=== PATIENT | female | born 1980 | race Caucasian/White ===

== ENCOUNTER 2017-10-02 10:21 | Emergency (ER) | payer SELFPAY ==
[2017-10-02 10:53] LABS: Urine Appearance Cloudy; Urine Blood Negative (Negative); Urine Color Yellow; Urine Ketones 1+ (Negative); Urine Protein Negative (Negative); Urine Specific Gravity 1.027 (1.010-1.030); Urine Urobilinogen Negative (Negative)
[2017-10-02] MEDS ORDERED: Al Hydrox/Mg Hydrox/Simet LIQ* 30 ML UDC PO ONE (12:13)
[2017-10-02] MEDS ORDERED: Lidocaine 2% VISCOUS* 15 ML UDC PO ONE (12:13)
[2017-10-02] MEDS ORDERED: Omeprazole CAP* 20 MG PO ONE (12:14)
[2017-10-02 12:41] LABS: ABS Basophils 0 10^3/ul (0-0.2); ABS Eosinophils 0.1 10^3/ul (0-0.6); ABS Monocytes 0.5 10^3/ul (0-0.8); ABS Neutrophils 7.5 10^3/ul (1.5-7.7); ABS Nucleated RBC 0 10^3/ul; Eosinophil % 1.1 % (0-6); Hematocrit 39 % (35-47); Hemoglobin 13.7 g/dl (12.0-16.0); Lymphocyte % 10.9 % (25-47); Mean Corpuscular HGB Conc 35 g/dl (31-36); Mean Corpuscular Hemoglobin 32 pg (27-31); Mean Corpuscular Volume 92 fL (80-97); Mean Platelet Volume 9 um3 (7.4-10.4); Nucleated Red Blood Cells % 0; Platelet Count 170 10^3/ul (150-450); Red Blood Count 4.27 10^6/ul (4.0-5.4); Red Cell Distribution Width 13 % (10.5-15); White Blood Count 9.2 10^3/ul (3.5-10.8)
[2017-10-02 12:57] LABS: EGFR Non-African American 103.3 (>60)
--- NOTE | 2017-10-02 13:41 | RAD ---
HISTORY: Abdominal pain, epigastric pain COMPARISONS: None VIEWS: Frontal supine and upright views of the abdomen. FINDINGS: BOWEL: There is a nonspecific bowel gas pattern, with nondilated small bowel gas noted. There is large amount of stool within the colon. CALCULI: There are no abnormal calculi. BONES AND SOFT TISSUES: There are no osseous abnormalities. OTHER FINDINGS: The lung bases are clear. There is no subphrenic gas. An IUD is noted. IMPRESSION: NONSPECIFIC BOWEL GAS PATTERN. LARGE AMOUNT OF STOOL WITHIN THE COLON.
[2017-10-02 14:47] VITALS: BP 115/71
--- NOTE | 2017-10-03 16:47 | ED ---
Itzel Art Thomas, scribed for Jaime Jaquez MD on 10/02/17 at 1226 . Abdominal Pain/Female - HPI Summary HPI Summary: The patient is a 37 year old female presenting with severe upper abdominal pain that began this morning at 03:00. The pain is described as burning. The pain waxes and wanes from 5/10 to 8/10. The pain was worsened by PO intake yesterday of a sip of wine and a small amount of food. She complains of nausea. The patient denies vomiting, diarrhea, a sour taste in her mouth, and constipation. The patient reports similar (albeit less severe) episodes of pain over the last 10 years. She denies a history of GERD. Past surgical history includes cholecystectomy and . She had an IUD inserted yesterday. LMP 09/16/17. - History of Current Complaint Chief Complaint: EDAbdPain Stated Complaint: ABD PAIN Time Seen by Provider: 10/02/17 12:07 Hx Obtained From: Patient Onset/Duration: Lasting Hours - onset this am at 03:00, Still Present Timing: Constant Severity Initially: Severe Severity Currently: Severe Pain Intensity: 8 Pain Scale Used: 0-10 Numeric Location: Other - upper Character: Burning Aggravating Factor(s): Food Alleviating Factor(s): Nothing Associated Signs and Symptoms: Positive: Nausea. Negative: Fever, Constipation , Vomiting, Diarrhea, Other: - sour taste in mouth Simlar Episode/Dx as:: prior episodes over last year Allergies/Adverse Reactions: Allergies Allergy/AdvReac Type Severity Reaction Status Date / Time No Known Allergies Allergy Verified 10/02/17 10:25 PMH/Surg Hx/FS Hx/Imm Hx Cardiovascular History: Denies: Hx Myocardial Infarction GI History: Denies: Hx Gastroesophageal Reflux Disease - Surgical History Surgery Procedure, Year, and Place: , [place] Infectious Disease History: No Infectious Disease History: Denies: Hx Clostridium Difficile, Hx Hepatitis, Hx Human Immunodeficiency Virus (HIV), Hx of Known/Suspected MRSA, Hx Shingles, Hx Tuberculosis, Hx Known/ Suspected VRE, Hx Known/Suspected VRSA, History Other Infectious Disease, Traveled Outside the [place] in Last 30 Days - Family History Known Family History: Positive: Hypertension - Social History Alcohol Use: None Hx Substance Use: No Substance Use Type: Reports: None Hx Tobacco Use: No Smoking Status (MU): Never Smoked Tobacco Review of Systems Negative: Fever Positive: Abdominal Pain, Nausea. Negative: Vomiting, Diarrhea, Other - sour taste in mouth, constipation All Other Systems Reviewed And Are Negative: Yes Physical Exam - Summary Physical Exam Summary: VITAL SIGNS: Reviewed. GENERAL: Patient is a well-developed and nourished female who is lying comfortable in the stretcher. Patient is not in any acute respiratory distress. HEAD AND FACE: Normocephalic and atraumatic. EYES: PERRLA, EOMI x 2, No injected conjunctiva. EARS: Hearing grossly intact. Ear canals and tympanic membranes are WNL. MOUTH: Oropharynx within normal limits. NECK: Supple, trachea is midline, no adenopathy, no JVD. CHEST: Symmetric, no tenderness at palpation LUNGS: Clear to auscultation bilaterally. No wheezing or crackles. CVS: RRR, S1 and S2 present, no murmurs or gallops appreciated. ABDOMEN: Soft. Epigastric tenderness. No signs of distention. Positive bowel sounds. No rebound no guarding, and no masses palpated. No abdominal bruit or pulsations. EXTREMITIES: FROM in all major joints, no edema, no cyanosis or clubbing. NEURO: Alert and oriented x 3. No acute neurological deficits. Speech is normal. SKIN: Dry and warm Triage Information Reviewed: Yes Vital Signs On Initial Exam: Initial Vitals Temp Pulse Resp BP Pulse Ox 98.6 F 79 17 121/81 100 10/02/17 10:25 10/02/17 10:25 10/02/17 10:25 10/02/17 10:25 10/02/17 10:25 Vital Signs Reviewed: Yes Diagnostics - Vital Signs Vital Signs Temp Pulse Resp BP Pulse Ox 10/02/17 10:25 98.6 F 79 17 121/81 100 - Laboratory Lab Results: Lab Results 10/02/17 Range/Units 10:40 Urine Color Yellow Urine Appearance Cloudy Urine pH 5.0 (5-9) Ur Specific Geff 1.027 (1.010-1.030) Urine Protein Negative (Negative) Urine Ketones 1+ H (Negative) Urine Blood Negative (Negative) Urine Nitrate Negative (Negative) Urine Bilirubin Negative (Negative) Urine Urobilinogen Negative (Negative) Ur Leukocyte Esterase Negative (Negative) Urine Glucose Negative (Negative) Urine Ascorbic Acid * H (Negative) Result Diagrams: 10/02/17 12:25 10/02/17 12:25 Lab Statement: Any lab studies that have been ordered have been reviewed, and results considered in the medical decision making process. - Radiology XR Abdomen Xray Interpretation: No Acute Changes - NONSPECIFIC BOWEL GAS PATTERN. LARGE AMOUNT OF STOOL WITHIN THE COLON. Dr. Jaquez has reviewed this report. Radiology Interpretation Completed By: Radiologist Abdominal Pain Fem Course/Dx - Course Course Of Treatment: The patient is a 37 year old female presenting with severe upper abdominal pain that began this morning at 03:00. The pain is described as burning. The pain waxes and wanes from 5/10 to 8/10. The pain was worsened by PO intake yesterday of a sip of wine and a small amount of food. She complains of nausea. The patient denies vomiting, diarrhea, a sour taste in her mouth, and constipation. The patient reports similar (albeit less severe) episodes of pain over the last 10 years. She denies a history of GERD. Past surgical history includes cholecystectomy and . She had an IUD inserted yesterday. LMP 09/16/17. Test results are without significant abnormalities. Urinalysis is negative for UTI. XR Abdomen shows NONSPECIFIC BOWEL GAS PATTERN. LARGE AMOUNT OF STOOL WITHIN THE COLON. In the ED course, the patient was given a GI cocktail and Protonix. All symptoms resolve and the patient was asymptomatic; therefore, the patient will be discharged home with follow up by primary care. The patient was given a prescription of Protonix for the epigastric pain, and Miralax for the constipation. - Diagnoses Provider Diagnoses: Epigastric abdominal pain, Constipation Discharge - Discharge Plan Condition: Stable Disposition: HOME Prescriptions: Pantoprazole TAB (NF) [Protonix TAB (NF)] 20 mg PO DAILY #20 tab Polyethylene Glycol 3350* [Miralax*] 17 gm PO DAILY #12 packet Patient Education Materials: Constipation (ED), Epigastric Pain (ED) Referrals: Yasmine Smith MD [Primary Care Provider] - 3 Days Additional Instructions: Follow up with your primary care provider in three days. Return to the emergency department for any new or worsening symptoms. The documentation as recorded by the Itzel sheriff Thomas accurately reflects the service I personally performed and the decisions made by Leonid ogden Walter, MD.
== END 2017-10-02 14:47 | disposition home or self-care (01) ==
LOC: ED 10:21
DX: R10.13 Epigastric pain (principal); K59.00 Constipation, unspecified
CPT/HCPCS: 36415; 74019; 80053; 81003; 83690; 85025; 86140; 87040; 99282; A9270-GY

== ENCOUNTER 2017-10-02 17:40 | Emergency (ER) | payer SELFPAY ==
[2017-10-02] MEDS ORDERED: NS 0.9% 1000 ML* 1,000 ML IV ONE (18:41)
[2017-10-02] MEDS ORDERED: Ondansetron INJ* 2 MG/ML VIAL IV ONE (18:46)
[2017-10-02] MEDS ORDERED: diPHENhydraMINE IV* 50 MG/ML 1 ml VIAL (BENADRYL) IM ONE (19:39)
[2017-10-02] MEDS ORDERED: diPHENhydraMINE IV* 50 MG/ML 1 ml VIAL (BENADRYL) IV ONE (19:43)
[2017-10-02] MEDS ORDERED: Pantoprazole IV* 40 MG IV ONE (19:52)
[2017-10-02 20:59] LABS: EGFR Non-African American 120.5 (>60)
[2017-10-02 21:12] VITALS: BP 101/72
--- NOTE | 2017-10-03 20:52 | ED ---
Luis Art Jennifer, scribed for Jordi Gaitan MD on 10/02/17 at 1905 . Abdominal Pain/Female - HPI Summary HPI Summary: The patient is a 37 year old female who presents to the ED with burning epigastric pain and vomiting today. The patient describes that she was here a few hours ago and given a GI cocktail for the burning pain. However, a few hours after leaving, her pain increased to a 9/10 and she vomited three times. She reports that pain mostly remains in the central abdomen but can radiate out a little. The patient additionally complains of itchiness. She has had her gallbladder removed. She denies blood in the stools, ulcers, and pain with palpation. - History of Current Complaint Chief Complaint: EDAbdPain Stated Complaint: ABD PAIN Hx Obtained From: Patient Onset/Duration: Lasting Hours - three hours Timing: Constant Severity Initially: Moderate Severity Currently: Moderate Pain Intensity: 9 Pain Scale Used: 0-10 Numeric Location: Epigastric Radiates: Yes Radiates to: Other - a little outwards from epigrastric region Character: Burning Aggravating Factor(s): Nothing Alleviating Factor(s): Nothing Associated Signs and Symptoms: Positive: Other: - vomiting, itchiness. NEGATIVE : blood in stools, ulcers, pain with palpation Allergies/Adverse Reactions: Allergies Allergy/AdvReac Type Severity Reaction Status Date / Time No Known Allergies Allergy Verified 10/02/17 10:25 PMH/Surg Hx/FS Hx/Imm Hx Endocrine/Hematology History: Denies: Hx Diabetes Cardiovascular History: Denies: Hx Hypertension - Surgical History Surgery Procedure, Year, and Place: Infectious Disease History: No Infectious Disease History: Denies: Hx Clostridium Difficile, Hx Hepatitis, Hx Human Immunodeficiency Virus (HIV), Hx of Known/Suspected MRSA, Hx Shingles, Hx Tuberculosis, Hx Known/ Suspected VRE, Hx Known/Suspected VRSA, History Other Infectious Disease, Traveled Outside the [place] in Last 30 Days - Family History Known Family History: Positive: Hypertension, Diabetes - Social History Alcohol Use: Daily Alcohol Amount: 2 glasses daily Hx Substance Use: No Substance Use Type: Reports: None Hx Tobacco Use: No Smoking Status (MU): Never Smoked Tobacco Review of Systems Positive: Other - Itchiness Gastrointestinal: Negative - Abdominal pain with palpation Positive: Abdominal Pain - epigastrium, Vomiting Genitourinary: Negative - Blood in the stools, ulcers All Other Systems Reviewed And Are Negative: Yes Physical Exam - Summary Physical Exam Summary: Appearance: Well-appearing, Well-nourished Skin: Warm, Dry, No rash Eyes: Normal, PERRL, EOMI, sclera anicteric ENT: Normal Neck: Supple, nontender Respiratory: Clear to auscultation Cardiovascular: S1, S2, no murmur, no rub, no gallop Abdomen: Soft, mild tenderness mid epigastrium, no organomegaly Bowel sounds: Present Musculoskeletal: Normal, Strength/ROM Intact, no edema, pulses symmetrical Neurological: Normal, A&Ox3, cranial nerves II-XII WNL, follows commands, gait not tested, sensation intact to pin and light touch Psychiatric: affect normal, behavior appropriate, dressed appropriately, judgment intact Triage Information Reviewed: Yes Vital Signs On Initial Exam: Initial Vitals Temp Pulse Resp BP Pulse Ox 98 F 68 18 127/88 100 10/02/17 17:46 10/02/17 17:46 10/02/17 17:46 10/02/17 17:46 10/02/17 17:46 Vital Signs Reviewed: Yes Diagnostics - Vital Signs Vital Signs Temp Pulse Resp BP Pulse Ox 10/02/17 18:30 75 129/81 98 10/02/17 17:46 98 F 68 18 127/88 100 - Laboratory Lab Statement: Any lab studies that have been ordered have been reviewed, and results considered in the medical decision making process. Re-Evaluation - Re-Evaluation First Eval Re-Evaluation Time: 19:52 Change: Worse Comment: The patient complains of increasing itchiness and has hives on her neck and chest. There are no hives around the face or pharynx. Abdominal Pain Fem Course/Dx - Course Course Of Treatment: The patient is a 37 year old female who presents to the ED with burning epigastric pain and vomiting today. In the ED course the patient was given Benadryl, IV fluids, Zofran, and Protonix. The patient is diagnosed with Peptic ulcer disease. The patient is instructed to follow up with primary care. - Diagnoses Provider Diagnoses: Peptic ulcer disease Discharge - Discharge Plan Condition: Stable Disposition: HOME Referrals: Yasmine Smith MD [Primary Care Provider] - Additional Instructions: RETURN TO THE EMERGENCY DEPARTMENT FOR CHANGING OR WORSENING SYMPTOMS. The documentation as recorded by the scribe, Trish Smith accurately reflects the service I personally performed and the decisions made by me, Jordi Gaitan MD.
== END 2017-10-02 21:24 | disposition home or self-care (01) ==
LOC: ED 17:40
DX: K27.9 Peptic ulcer, site unspecified, unspecified as acute or chronic, without hemorrhage or perforation (principal)
CPT/HCPCS: 36415; 80048; 96360; 96372; 96374; 96375; 99283; J1200; J2405